=== PATIENT | male | born 1960 | race Caucasian/White ===

== ENCOUNTER 2017-10-24 22:09 | Emergency (ER) | payer BC ==
[2017-10-24 22:16] VITALS: BP 124/60
[2017-10-24] MEDS ORDERED: valACYclovir 500 MG TAB PO ONE (22:32)
[2017-10-24] MEDS ORDERED: HYDROCOD/APAP 5/325 PREPACK#6 BTL TAKEHOME ONE (22:32)
--- NOTE | 2017-10-24 22:33 | EDPHY ---
General - History Smoking Status: Never smoked Time Seen by Provider: 10/24/17 22:30 Narrative: CHIEF COMPLAINT: Spider bite HISTORY OF PRESENT ILLNESS: Patient presents with complaints of spider bite. He states that he was working with [employer] yesterday when he felt a spider bite him on the left arm. He did not see this. Since then he has had some increasing pain and rash to the left shoulder and left axilla. Pain is mild at times. It becomes "sudden shoot across"at other times. No fever chills. No chest pain or shortness of breath. No eye pain. No facial complaints. No cough. He contact his primary care physician, and they recommended he present here. No other associated complaints or modifying factors. TIME OF INJURY: Yesterday afternoon TETANUS STATUS: Up-to-date MEDICAL/SURGICAL/SOCIAL HISTORY: Cervical discopathy, orthopedic injuries. Orthopedic surgery and cervical fusion. She complex as a child. REVIEW OF SYSTEMS: Ten systems reviewed and are negative unless otherwise noted in the HPI EXAMINATION General Appearance: Alert, no distress Head: normocephalic, atraumatic. ENT: Pupils equal round reactive. EOM symmetric. No conjunctival injection or pallor Cardiovascular: Pulses normal throughout. Brisk cap refill Neurological: A&O, sensory symmetric, strength symmetric Skin: Warm and dry. There is an erythematous rash with central areas of vesicular lesions over the left axilla and left shoulder and a dermatomal distribution. This does not cross midline. There is no petechiae. No purpura. No abscess, fluctuance, induration or cellulitis. There are no lesions of the face in any location. Extremities: Nontender, no pedal edema DIFFERENTIAL DIAGNOSES: Including but not limited to zoster, contact dermatitis, vesicular dermatitis, bullous dermatitis MDM: 10:30 p.m. Is herpes zoster on the left shoulder and axilla. This does follow a dermatomal pattern. There is no signs of secondary infection excoriation. No involvement face, nose or eyes. Vital signs are within normal limits. I do not appreciate any abscess or cellulitis. We discussed oral antivirals. We discussed follow up primary care physician. First dose of bowel acyclovir will be given here. Prepack of Lock[place] be provided. I have written prescriptions for the remaining medications for 7 days. I have answered all his questions he is discharged home stable condition. SUPERVISION: This patient was independently evaluated without direct involvement of or examination by the attending physician. (Madan Viramontes) PHYSICIAN DOCUMENTATION: The patient was evaluated and managed by the Physician Tank Builder Supervisor. My co- signature indicates that I have reviewed this chart and I agree with the findings and plan of care as documented. I am the secondary supervising physician. (Socorro Rodriguez) - Objective Vital Signs: Initial Vital Signs Temperature (C) 36.6 C 10/24/17 22:14 Heart Rate 50 L 10/24/17 22:14 Respiratory Rate 18 10/24/17 22:14 Blood Pressure 124/60 H 10/24/17 22:14 O2 Sat (%) 98 10/24/17 22:14 O2 Delivery Mode Room Air Allergies/Adverse Reactions: Shellfish *RETIRED-10/30/11 [Shellfish] Allergy (Verified 10/24/17 22:14) Home Medications: Medication Instructions Recorded No Medications [NO HOME 1 ea MISC 07/26/11 MEDICATIONS] Hydrocodone/APAP 5/325 [[place] 1 - 2 tab PO Q4H PRN #13 tab 10/24/17 5/325 (*)] Valacyclovir HCl [Valtrex] 1,000 mg PO TID #21 tab 10/24/17 Medications Given: Discontinued Medications Hydrocodone Bitart/Acetaminophen ([place] 5/325mg Prepack#6) 1 btl TAKEHOME EDNOW ONE Stop: 10/24/17 22:33 Last Admin: 10/24/17 22:43 Dose: 1 btl Valacyclovir HCl (Valtrex) 1,000 mg PO EDNOW ONE Stop: 10/24/17 22:33 Last Admin: 10/24/17 22:43 Dose: 1,000 mg Departure - Departure Disposition: Home, Routine, Self-Care Clinical Impression: Shingles Qualifiers: Herpes zoster complications: without complications Qualified Code(s): B02.9 - Zoster without complications Condition: Good Instructions: Hydrocodone/Acetaminophen (By mouth), Shingles (ED) Additional Instructions: 1. Valacyclovir 1000 mg by mouth 3 times daily for 7 days 2. Pain medication as prescribed as needed 3. Contact primary care physician for further care 4. Contact precautions as discussed for children, women or unvaccinated elderly individuals Referrals: Monica Pittman MD [Primary Care Provider] - As per Instructions Prescriptions: Hydrocodone/APAP 5/325 [[place] 5/325 (*)] 1 - 2 tab PO Q4H PRN #13 tab PRN Reason: Pain, Moderate Valacyclovir HCl [Valtrex] 1,000 mg PO TID #21 tab
== END 2017-10-24 22:48 | disposition home or self-care (01) ==
DX: B02.9 Zoster without complications (principal)